=== PATIENT | male | born 1965 | race Caucasian/White ===

== ENCOUNTER 2022-08-17 02:59 | Inpatient (IN) | payer MEDICARE, MEDICAID ==
[2022-08-17] MEDS ORDERED: Sodium Chloride 0.9% 1,000 ML IV ONE ×2 (03:33→10:58)
[2022-08-17] MEDS ORDERED: fentaNYL 50 MCG/ML SDV IVPUSH ONE ×2 (03:33→06:25)
[2022-08-17 03:42] LABS: CHLORIDE,CL 93 mmol/L (98-107); SODIUM,NA 131 mmol/L (136-145)
[2022-08-17 03:47] LABS: ANION GAP 15.3 mmol/L (5-15); ESTIMATED GFR 70 mL/min (>=60)
[2022-08-17 03:58] LABS: METHAMPHETAMINE SCREEN, URINE POSITIVE (NEGATIVE); THC SCREEN,URINE 50 NG/ML POSITIVE (NEGATIVE)
[2022-08-17 03:59] LABS: BARBITURATE SCREEN,URINE NEGATIVE (NEGATIVE); BENZODIAZEPINES SCREEN,URINE NEGATIVE (NEGATIVE); BUPRENORPHINE SCREEN,URINE NEGATIVE (NEGATIVE)
[2022-08-17] MEDS ORDERED: cefTRIAXone 1 GM Vial IVPUSH ONE (03:59)
[2022-08-17] MEDS ORDERED: Iopamidol 612 MG/ML 100 ML Bottle IVPUSH ONE (04:17)
[2022-08-17] MEDS ORDERED: Piperacillin/Tazobactam 3.375 GM in Sodium Chloride 0.9% 100 ML IV ONE (06:22)
[2022-08-17] MEDS ORDERED: Acetaminophen/oxyCODONE 325-5 MG Tab PO ONE (07:12)
[2022-08-17] MEDS ORDERED: Albuterol HFA 18 Gm Inhaler INH PRN (10:48)
[2022-08-17] MEDS ORDERED: Magnesium Hydroxide 400 MG/5 ML Susp 30 ML Cup PO PRN (10:52)
[2022-08-17] MEDS ORDERED: Polyethylene Glycol 3350 Powder 17 GM Packet PO PRN (10:52)
[2022-08-17] MEDS ORDERED: Ondansetron 4 MG Tab.DIS PO PRN (10:52)
[2022-08-17] MEDS ORDERED: Non-Formulary Medication 1 Each (Fluticasone/Salmeterol 14 PUFF/DISKUS Diskus) INH SCH (11:00)
[2022-08-17] MEDS ORDERED: Cyclobenzaprine 10 MG Tab PO PRN (11:01)
[2022-08-17] MEDS: Pantoprazole 20 MG Tab, Delayed Release PO SCH (12:45)
[2022-08-17] MEDS: buPROPion 150 MG Tab.ER PO SCH (12:45)
[2022-08-17] MEDS: Lisinopril 2.5 MG Tab PO SCH (12:46)
[2022-08-17] MEDS: Ezetimibe 10 MG Tab PO SCH (12:46)
[2022-08-17] MEDS: DULoxetine 60 MG Cap PO SCH (12:46)
[2022-08-17] MEDS: Magnesium Oxide 400 MG Tab PO SCH ×2 (12:47→20:35)
[2022-08-17] MEDS: Acetaminophen 325 MG Tab PO PRN ×2 (12:47→22:22)
[2022-08-17] MEDS: Aspirin 81 MG Tab.EC PO SCH (12:47)
[2022-08-17] MEDS: Sodium Chloride 0.9% 1,000 ML IV SCH ×2 (12:54→22:14)
[2022-08-17] MEDS: Ampicillin/Sulbactam Na 3 GM in Sodium Chloride 0.9% 100 ML IV SCH ×3 (12:59→22:15)
[2022-08-17] MEDS: Formoterol/Mometasone 200-5 MCG 13 GM Inhaler INH SCH ×2 (13:01→20:40)
[2022-08-17] MEDS: Acetaminophen/oxyCODONE 325-5 MG Tab PO PRN ×2 (14:49→20:32)
[2022-08-17] MEDS: Gabapentin 100 MG Cap PO SCH (20:35)
[2022-08-17] MEDS: Montelukast 10 MG Tab PO SCH (20:35)
[2022-08-17] MEDS: Fluticasone Propionate Nasal Spray 9.9 ML BOTTLE NASBOTH SCH (20:35)
[2022-08-17] MEDS: atorvaSTATin 10 MG Tab PO SCH (20:35)
[2022-08-18] MEDS: Acetaminophen/oxyCODONE 325-5 MG Tab PO PRN ×5 (01:28→23:44)
[2022-08-18] MEDS: Ampicillin/Sulbactam Na 3 GM in Sodium Chloride 0.9% 100 ML IV SCH ×4 (05:07→22:10)
[2022-08-18] MEDS: Sodium Chloride 0.9% 1,000 ML IV SCH ×3 (05:40→23:28)
[2022-08-18 08:33] LABS: ANION GAP 9.3 mmol/L (5-15)
[2022-08-18] MEDS: Cholecalciferol (Vitamin D3) 25 MCG Tab PO SCH (08:53)
[2022-08-18] MEDS: buPROPion 150 MG Tab.ER PO SCH (08:53)
[2022-08-18] MEDS: Magnesium Oxide 400 MG Tab PO SCH ×2 (08:53→20:07)
[2022-08-18] MEDS: DULoxetine 60 MG Cap PO SCH (08:53)
[2022-08-18] MEDS: Cyanocobalamin (Vitamin B12) 1,000 MCG Tab PO SCH (08:53)
[2022-08-18] MEDS: Aspirin 81 MG Tab.EC PO SCH (08:54)
[2022-08-18] MEDS: Ezetimibe 10 MG Tab PO SCH (08:54)
[2022-08-18] MEDS: Pantoprazole 20 MG Tab, Delayed Release PO SCH (08:54)
[2022-08-18] MEDS: Lisinopril 2.5 MG Tab PO SCH (08:54)
[2022-08-18] MEDS: atorvaSTATin 10 MG Tab PO SCH (08:54)
[2022-08-18] MEDS: Formoterol/Mometasone 200-5 MCG 13 GM Inhaler INH SCH ×2 (08:55→20:08)
[2022-08-18] MEDS: Fluticasone Propionate Nasal Spray 9.9 ML BOTTLE NASBOTH SCH ×2 (08:55→20:08)
[2022-08-18] MEDS: Montelukast 10 MG Tab PO SCH (20:07)
[2022-08-18] MEDS: Gabapentin 100 MG Cap PO SCH (20:07)
[2022-08-19] MEDS: Ampicillin/Sulbactam Na 3 GM in Sodium Chloride 0.9% 100 ML IV SCH ×2 (04:18→10:37)
[2022-08-19] MEDS: Acetaminophen/oxyCODONE 325-5 MG Tab PO PRN ×2 (05:05→10:53)
[2022-08-19 07:24] LABS: ANION GAP 9.2 mmol/L (5-15)
[2022-08-19] MEDS ORDERED: Albuterol/Ipratropium 3.0-0.5 MG/3 ML Neb Soln NEB SCH (08:31)
[2022-08-19] MEDS ORDERED: atorvaSTATin 40 MG Tab PO SCH (09:00)
[2022-08-19] MEDS ORDERED: risperiDONE 1 MG Tab PO SCH (09:15)
[2022-08-19] MEDS: Formoterol/Mometasone 200-5 MCG 13 GM Inhaler INH SCH (09:15)
[2022-08-19] MEDS: Fluticasone Propionate Nasal Spray 9.9 ML BOTTLE NASBOTH SCH (09:16)
[2022-08-19] MEDS: Pantoprazole 20 MG Tab, Delayed Release PO SCH (09:21)
[2022-08-19] MEDS: buPROPion 150 MG Tab.ER PO SCH (09:21)
[2022-08-19] MEDS: Ezetimibe 10 MG Tab PO SCH (09:22)
[2022-08-19] MEDS: DULoxetine 60 MG Cap PO SCH (09:22)
[2022-08-19] MEDS: Cholecalciferol (Vitamin D3) 25 MCG Tab PO SCH (09:22)
[2022-08-19] MEDS: Lisinopril 2.5 MG Tab PO SCH (09:22)
[2022-08-19] MEDS: Magnesium Oxide 400 MG Tab PO SCH (09:23)
[2022-08-19 09:24] VITALS: BP 133/66
[2022-08-19] MEDS: Cyanocobalamin (Vitamin B12) 1,000 MCG Tab PO SCH (09:24)
[2022-08-19] MEDS ORDERED: Enoxaparin 40 MG/0.4 ML Syringe SUBCUT ONE (10:00)
[2022-08-19 10:45] VITALS: PULSE 76
[2022-08-19] MEDS ORDERED: oxyCODONE 5 MG Tab PO PRN (11:19)
== END 2022-08-19 13:30 | disposition short-term general hospital (02) | DRG 872 ==
LOC: VM.ED 02:59 → VM.MS 07:49
PROVIDERS: ADMIT Nurse Practitioner Family; ATTEND Nurse Practitioner Family
DX: A41.9 Sepsis, unspecified organism (principal); K81.9 Cholecystitis, unspecified; F17.200 Nicotine dependence, unspecified, uncomplicated; K81.0 Acute cholecystitis; I25.9 Chronic ischemic heart disease, unspecified; F02.84 Dementia in other diseases classified elsewhere, unspecified severity, with anxiety; F03.90 Unspecified dementia, unspecified severity, without behavioral disturbance, psychotic disturbance, mood disturbance, and anxiety; E11.9 Type 2 diabetes mellitus without complications; I10 Essential (primary) hypertension; E78.5 Hyperlipidemia, unspecified; J44.9 Chronic obstructive pulmonary disease, unspecified; I73.9 Peripheral vascular disease, unspecified; N40.0 Benign prostatic hyperplasia without lower urinary tract symptoms; F17.210 Nicotine dependence, cigarettes, uncomplicated; F15.10 Other stimulant abuse, uncomplicated; F15.90 Other stimulant use, unspecified, uncomplicated; G31.09 Other frontotemporal neurocognitive disorder; Z20.822 Contact with and (suspected) exposure to COVID-19; K21.9 Gastro-esophageal reflux disease without esophagitis; B18.2 Chronic viral hepatitis C; F32.9 Major depressive disorder, single episode, unspecified; G89.4 Chronic pain syndrome; Z87.891 Personal history of nicotine dependence; Z79.4 Long term (current) use of insulin; Z90.89 Acquired absence of other organs; Z88.1 Allergy status to other antibiotic agents; Z88.8 Allergy status to other drugs, medicaments and biological substances; Z79.899 Other long term (current) drug therapy
CPT/HCPCS: 36415; 80053; 80305-QW; 81001; 82947; 83605; 83690; 84145; 85025; 86140; 87040; 94640; 99284; A9270-GY; J0295; J0696; J1650; J2543; J3010; J7030; J7620-GY; Q9967; U0002